=== PATIENT | male | born 1980 | race Caucasian/White ===

== ENCOUNTER 2016-11-11 10:18 | Emergency (ER) | payer OTHER ==
[~2016-11-11] VITALS: Ht 188 cm; Wt 87.0 kg
[2016-11-11 10:35] VITALS: BP 115/73
[2016-11-11] MEDS ORDERED: BACITRACIN ZINC OINT 500U/GM, 0.9 GM ONE (10:56)
== END 2016-11-11 12:04 | disposition home or self-care (01) ==
LOC: ED 11:49
DX: S61.252A Open bite of right middle finger without damage to nail, initial encounter (principal); W54.0XXA Bitten by dog, initial encounter; Y93.89 Activity, other specified; Y92.89 Other specified places as the place of occurrence of the external cause; Y99.8 Other external cause status
CPT/HCPCS: 99284

== ENCOUNTER 2019-08-06 18:53 | Emergency (ER) | payer OTHER ==
[~2019-08-06] VITALS: Ht 188 cm; Wt 89.3 kg
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
[2019-08-06] MEDS ORDERED: HYDROmorphone 1 MG/ML, 1ML INJ ONE (19:14)
[2019-08-06] MEDS: HYDROmorphone 1 MG/ML, 1ML INJ IVPush PRN ×3 (19:25→20:45)
[2019-08-06 19:26] LABS: BASOPHILS # (AUTO) 0.05 x10^3/uL (0-0.1); BASOPHILS % (AUTO) 1 % (0-1); EOSINOPHILS % (AUTO) 2 % (1-7); LYMPHOCYTES % (AUTO) 36 % (22-44); MD NO; MEAN CORPUSCULAR HEMOGLOBIN 35.2 pg (27.5-34.5); MEAN CORPUSCULAR HGB CONC 34.9 g/dL (33.2-36.2); MEAN CORPUSCULAR VOLUME 100.9 fL (81-97); MEAN PLATELET VOLUME 7.1 fL (7.4-10.4); MONOCYTES # (AUTO) 0.69 x10^3/uL (0.2-0.8); MONOCYTES % (AUTO) 7 % (2-9); NEUTROPHILS # (AUTO) 5.43 x10^3/uL (1.8-6.8); NEUTROPHILS % (AUTO) 55 % (42-75); PLATELET COUNT 313 x10^3/uL (130-400); RED BLOOD COUNT 4.44 x10^6/uL (4.38-5.82); RED CELL DISTRIBUTION WIDTH 12.9 % (9.4-14.8)
[2019-08-06] MEDS ORDERED: SODIUM CHLORIDE FLUSH 10ML SYR IVF ONE ×2 (19:30→21:00)
[2019-08-06] MEDS ORDERED: DIPH,PERTUSS(ACELL),TET VAC/PF 0.5 ML IM-VACC ONE ×2 (19:31→20:00)
[2019-08-06 19:32] LABS: ALBUMIN 3.8 g/dL (3.4-5.0); ANION GAP 5 mmol/L (5-15); CALCIUM 8.2 mg/dL (8.5-10.1); CHLORIDE 110 mmol/L (98-107); CREATININE 0.88 mg/dL (0.7-1.3)
[2019-08-06] MEDS ORDERED: CEFAZOLIN PMX 1GM/50ML 50 ML IV ONE (19:33)
[2019-08-06] MEDS ORDERED: BUPIVACAINE 0.25% ONE (19:35)
[2019-08-06] MEDS ORDERED: LIDOCAINE-MPF 1%, 5ML ONE (19:35)
[2019-08-06] MEDS ORDERED: HYDROmorphone 2 MG/ML, 1ML ONE (19:40)
[2019-08-06] MEDS ORDERED: CEFAZOLIN PMX 1GM/50ML 50 ML ONE (19:41)
--- NOTE | 2019-08-06 21:05 | NUR ---
ERP in room.
[2019-08-06] MEDS ORDERED: DIPHENHYDRAMINE 50 MG/ML, 1ML ONE (21:26)
[2019-08-06] MEDS ORDERED: NEOSPORIN OINT. PKT 1 PACKET ONE (21:33)
[2019-08-06 22:11] VITALS: BP 137/65
--- NOTE | 2019-08-06 22:12 | NUR ---
Discharge instructions given. All questions and concerns addressed. Patient ambulatory with a steady gait. Belongings with patient.
[2019-08-06] MEDS ORDERED: DIPHENHYDRAMINE 50 MG/ML, 1ML IVPush STA (22:22)
== END 2019-08-06 22:13 | disposition home or self-care (01) ==
LOC: ED 22:00
DX: S61.211A Laceration without foreign body of left index finger without damage to nail, initial encounter (principal); S61.213A Laceration without foreign body of left middle finger without damage to nail, initial encounter; V89.2XXA Person injured in unspecified motor-vehicle accident, traffic, initial encounter; Y93.89 Activity, other specified; Y92.009 Unspecified place in unspecified non-institutional (private) residence as the place of occurrence of the external cause; Y99.8 Other external cause status
CPT/HCPCS: 12004; 36415; 73090; 73140; 80048; 82040; 85025; 90471; 90715; 96365; 96375; 96376; 99284; J0690; J1170; J1200